=== PATIENT | male | born 1935 | race Caucasian/White ===

== ENCOUNTER 2017-10-01 14:53 | Inpatient (IN) ==
[2017-10-01] MEDS ORDERED: ASPIRIN 325 MG TABLET PO STA (15:40)
[2017-10-01 16:16] LABS: Basophils % 0.6 % (0.0-0.8); Eosinophils # 0.4 10*3/uL (0.0-0.87); Eosinophils % 5.8 % (0.00-10.9); Hematocrit 40.4 VOL% (42.0-52.0); Hemoglobin 13.5 GM/DL (14.0-18.0); Immature Granulocytes % 0.2 %; Immature Granulocytes Absolute 0.01 #; Lymphocytes # 2.3 10*3/uL (1.4-4.0); Lymphocytes % 36.9 % (21.2-54.2); Mean Corpuscular HGB Conc 33.4 GM/DL (32-36); Mean Corpuscular Hemoglobin 31 PG (27-34); Mean Corpuscular Volume 93.7 FL (87-102); Monocytes # 0.8 10*3/uL (0.11-0.8); Neutrophils # 2.8 10*3/uL (1.4-7.4); Neutrophils % 44.5 % (38.7-73.9); Platelet Count 185 T/CUMM (130-400); Red Blood Count 4.31 MC/CUMM (3.8-5.5); Red Cell Distribution Width 12.6 % (9.3-17.3); White Blood Count 6.2 T/CUMM (4-12)
[2017-10-01 16:44] LABS: Albumin 3.4 G/DL (3.4-5.0); Bilirubin,Total 0.5 MG/DL (0.2-1.0); Calcium 7.9 MG/DL (8.5-10.1); Osmolality,Calculated 278.5 MOS/KG (273-304); Potassium 3.5 MMOL/L (3.5-5.1); Total Protein 6.3 G/DL (6.4-8.3)
[2017-10-01] MEDS: ENOXAPARIN 40 MG/0.4 ML SYRINGE SUBCUT SCH (20:38)
[2017-10-01] MEDS ORDERED: CHLORDIAZEPOXIDE 5 MG PO PRN (21:21)
[2017-10-01] MEDS ORDERED: NITROGLYCERIN SL 0.4 MG TABLET SL PRN (21:21)
[2017-10-01] MEDS ORDERED: MECLIZINE 25 MG TABLET PO PRN (21:21)
[2017-10-01] MEDS: ISOSORBIDE MONONITRATE 30 MG TABLET PO SCH (23:16)
[2017-10-01] MEDS: ASCORBIC ACID 500 MG TABLET PO SCH (23:16)
[2017-10-01] MEDS: METOPROLOL TARTRATE 25 MG TABLET PO SCH (23:16)
[2017-10-01] MEDS: MONTELUKAST 10 MG TABLET PO SCH (23:16)
[2017-10-01] MEDS: LISINOPRIL 20 MG TABLET PO SCH (23:16)
[2017-10-01] MEDS: ASPIRIN EC 81 MG TABLET PO SCH (23:17)
[2017-10-01] MEDS: CALCIUM (CARBONATE)/VITAMIN D 500 MG-200 UNIT TABLET PO SCH (23:17)
[2017-10-01] MEDS: POTASSIUM CHLORIDE 20 MEQ TABLET PO SCH (23:17)
[2017-10-01] MEDS: amLODIPine 5 MG TABLET PO SCH (23:17)
[2017-10-01] MEDS: FEXOFENADINE 180 MG TABLET PO SCH (23:20)
[2017-10-02] MEDS: ALBUTEROL 2.5 MG/3 ML NEB RESP TX SCH ×5 (00:44→23:51)
[2017-10-02 07:12] LABS: Basophils % 0.6 % (0.0-0.8); Eosinophils # 0.3 10*3/uL (0.0-0.87); Eosinophils % 5.1 % (0.00-10.9); Hematocrit 41.9 VOL% (42.0-52.0); Immature Granulocytes % 0.2 %; Immature Granulocytes Absolute 0.01 #; Lymphocytes # 1.8 10*3/uL (1.4-4.0); Lymphocytes % 29.2 % (21.2-54.2); Mean Corpuscular HGB Conc 33.4 GM/DL (32-36); Mean Corpuscular Hemoglobin 31 PG (27-34); Mean Corpuscular Volume 93.3 FL (87-102); Mean Platelet Volume 10.9 FL (9.6-12.0); Monocytes # 0.7 10*3/uL (0.11-0.8); Monocytes % 10.5 % (1.7-12.7); Neutrophils # 3.4 10*3/uL (1.4-7.4); Neutrophils % 54.4 % (38.7-73.9); Platelet Count 192 T/CUMM (130-400); Red Blood Count 4.49 MC/CUMM (3.8-5.5); Red Cell Distribution Width 12.8 % (9.3-17.3); White Blood Count 6.3 T/CUMM (4-12)
[2017-10-02 07:45] LABS: Osmolality,Calculated 285.1 MOS/KG (273-304); Potassium 3.7 MMOL/L (3.5-5.1)
[2017-10-02] MEDS: FUROSEMIDE 40 MG/4 ML VIAL IV SCH ×2 (09:06→16:58)
[2017-10-02] MEDS: MAGNESIUM OXIDE 400 MG TABLET PO SCH (09:06)
[2017-10-02] MEDS: MULTIVITAMIN (CENTRUM) TABLET PO SCH (09:06)
[2017-10-02] MEDS: CITALOPRAM 20 MG TABLET PO SCH (09:07)
[2017-10-02] MEDS: CALCIUM (CARBONATE)/VITAMIN D 500 MG-200 UNIT TABLET PO SCH ×2 (09:07→21:45)
[2017-10-02] MEDS: MELOXICAM 7.5 MG TABLET PO SCH (09:07)
[2017-10-02] MEDS: amLODIPine 5 MG TABLET PO SCH ×2 (09:07→21:45)
[2017-10-02] MEDS: PANTOPRAZOLE 40 MG TABLET PO SCH (09:07)
[2017-10-02] MEDS: CHOLECALCIFEROL 5,000 UNIT TABLET PO SCH (09:07)
[2017-10-02] MEDS: FLUTICASONE 50 MCG NASAL SPRAY 16 GM BOTTLE BOTH NARES SCH (09:07)
[2017-10-02] MEDS: LISINOPRIL 20 MG TABLET PO SCH ×2 (09:07→21:44)
[2017-10-02] MEDS: POTASSIUM CHLORIDE 20 MEQ TABLET PO SCH ×2 (09:07→21:44)
[2017-10-02] MEDS ORDERED: chlordiazePOXIDE 10 MG CAPSULE PO PRN (11:46)
[2017-10-02] MEDS: ACETAMINOPHEN 325 MG TABLET PO PRN ×2 (14:28→23:43)
[2017-10-02] MEDS: chlordiazePOXIDE 10 MG CAPSULE PO PRN ×2 (14:28→23:43)
[2017-10-02] MEDS: ENOXAPARIN 40 MG/0.4 ML SYRINGE SUBCUT SCH (17:00)
[2017-10-02] MEDS: METOPROLOL TARTRATE 25 MG TABLET PO SCH (21:45)
[2017-10-02] MEDS: FEXOFENADINE 180 MG TABLET PO SCH (21:45)
[2017-10-02] MEDS: ASCORBIC ACID 500 MG TABLET PO SCH (21:45)
[2017-10-02] MEDS: ASPIRIN EC 81 MG TABLET PO SCH (21:45)
[2017-10-02] MEDS: ISOSORBIDE MONONITRATE 30 MG TABLET PO SCH (21:45)
[2017-10-02] MEDS: MONTELUKAST 10 MG TABLET PO SCH (21:45)
[2017-10-03 04:22] LABS: Calcium 8.5 MG/DL (8.5-10.1); Osmolality,Calculated 279.5 MOS/KG (273-304); Potassium 3.1 MMOL/L (3.5-5.1)
[2017-10-03] MEDS: ALBUTEROL 2.5 MG/3 ML NEB RESP TX SCH (07:25)
[2017-10-03] MEDS: FUROSEMIDE 40 MG/4 ML VIAL IV SCH (08:57)
[2017-10-03] MEDS: CITALOPRAM 20 MG TABLET PO SCH (08:57)
[2017-10-03] MEDS: CALCIUM (CARBONATE)/VITAMIN D 500 MG-200 UNIT TABLET PO SCH (08:57)
[2017-10-03] MEDS: MELOXICAM 7.5 MG TABLET PO SCH (08:58)
[2017-10-03] MEDS: LISINOPRIL 20 MG TABLET PO SCH (08:58)
[2017-10-03] MEDS: MULTIVITAMIN (CENTRUM) TABLET PO SCH (08:58)
[2017-10-03] MEDS: PANTOPRAZOLE 40 MG TABLET PO SCH (08:58)
[2017-10-03] MEDS: POTASSIUM CHLORIDE 20 MEQ TABLET PO SCH (08:58)
[2017-10-03] MEDS ORDERED: POTASSIUM CHLORIDE 20 MEQ TABLET PO ONE (09:00)
[2017-10-03] MEDS: ACETAMINOPHEN 325 MG TABLET PO PRN (09:02)
[2017-10-03] MEDS: chlordiazePOXIDE 10 MG CAPSULE PO PRN (09:03)
[2017-10-03] MEDS: FLUTICASONE 50 MCG NASAL SPRAY 16 GM BOTTLE BOTH NARES SCH (09:04)
[2017-10-03] MEDS: MAGNESIUM OXIDE 400 MG TABLET PO SCH (09:04)
[2017-10-03] MEDS: CHOLECALCIFEROL 5,000 UNIT TABLET PO SCH (09:05)
[2017-10-03 11:12] VITALS: BP 132/78
== END 2017-10-03 13:14 | disposition home or self-care (01) | DRG 293 ==
LOC: N.ED 14:53 → N.EDINP 14:53 → OBSVTOIN 17:08 → N.5E 20:16